=== PATIENT | male | born 1965 | race Caucasian/White ===

== ENCOUNTER 2018-05-17 09:41 | Day surgery (SDC) | payer OTHER ==
[2018-05-17] MEDS ORDERED: FENTAnyl 50 MCG/ML VIAL (12:22)
[2018-05-17] MEDS ORDERED: MIDAZOLAM 1 MG/ML 2 ML INJ ×3 (12:22)
== END 2018-05-17 13:42 | disposition home or self-care (01) ==
LOC: GIL 09:41
DX: K92.1 Melena (principal); K29.30 Chronic superficial gastritis without bleeding; K21.9 Gastro-esophageal reflux disease without esophagitis; D12.6 Benign neoplasm of colon, unspecified; K64.8 Other hemorrhoids; E11.9 Type 2 diabetes mellitus without complications; I10 Essential (primary) hypertension
CPT/HCPCS: 43239; 82962; 88305; 88312